=== PATIENT | female | born 1975 | race Caucasian/White ===

== ENCOUNTER 2018-03-24 08:18 | Outpatient (CLI) | payer OTHER ==
--- NOTE | 2018-03-24 10:26 | MMO ---
SCREENING MAMMOGRAPHY: Date: 03-24-18 Comparison: 11-09-15 History: Screening mammogram. FINDINGS: This study is interpreted with the assistance of computer aided detection. Breast parenchyma is heterogeneously dense, limiting mammographic sensitivity. There is no dominant mass or architectural distortion. No concerning microcalcifications. IMPRESSION: BIRADS 1 - negative. Annual screening mammography advised. POS: [facility]
== END 2018-03-24 08:19 | disposition home or self-care (01) ==
LOC: SCSMAMMO 08:18
PROVIDERS: ATTEND Family Medicine
DX: Z12.31 Encounter for screening mammogram for malignant neoplasm of breast (principal)
CPT/HCPCS: 77067

== ENCOUNTER 2018-04-13 08:40 | Outpatient (CLI) | payer OTHER ==
--- NOTE | 2018-04-13 11:55 | ULT ---
LEFT BREAST LIMITED ULTRASOUND: History: Patient presents with a palpable finding in the outer aspect of the left breast. FINDINGS: In the 4 o'clock position in the left breast, 5 cm from the nipple there is a benign cyst measuring 0 .4 x 0.7 x 0.8 cm. In the 4 o'clock position of the left breast 6 cm from the nipple there is a sligh tly larger, 0.6 x 0.9 x 1.0 cm benign cyst. Two benign cysts in the upper outer aspect of the left breast which certainly could account for palpa ble finding. IMPRESSION: BIRADS category 2 - benign findings. Continued annual follow up screening mammograms. Given the patient's very dense breast parenchymal changes, I would suggest consideration for follow u p 3D mammography. POS: OFF
== END 2018-04-13 08:41 | disposition home or self-care (01) ==
LOC: BICMAMMO 08:40
PROVIDERS: ATTEND Family Medicine
DX: N63.20 Unspecified lump in the left breast, unspecified quadrant (principal); N64.89 Other specified disorders of breast
CPT/HCPCS: G0279

== ENCOUNTER 2019-04-15 09:07 | Outpatient (CLI) | payer OTHER ==
--- NOTE | 2019-04-15 10:32 | ULT ---
THYROID ULTRASOUND INDICATION: Abnormal thyroid exam TECHNIQUE: Grayscale and color Doppler images were obtained of the thyroid gland. COMPARISON: None FINDINGS: Right thyroid lobe: The right thyroid lobe measures 5.1 x 1.5 x 1.5 cm. Thyroid isthmus: The thyroid isthmus measures 0.24 cm. Left thyroid lobe: The left thyroid lobe measures 5.0 x 1.3 x 1.2 cm. There is a 1.1 cm cyst within t he mid left thyroid lobe. IMPRESSION: 1. TIRADS 1 lesion of the mid left thyroid lobe. No ultrasound follow-up is recommended. 2. No focal lesion seen within the right thyroid lobe or thyroid isthmus.
--- NOTE | 2019-04-15 13:23 | MMO ---
Bilateral MAMMO Bilat Screen [facility]. CLINICAL HISTORY: Patient is 43 years old and is seen for screening. The patient has no family history of breast cancer. The patient has no personal history of cancer. VIEWS: The views performed were: bilateral craniocaudal with tomosynthesis; bilateral mediolateral oblique with tomosynthesis; and bilateral exaggerated craniocaudal. FILMS COMPARED: The present examination has been compared to prior imaging studies performed at [facility] on 04/13/2018, and at [facility] on 11/09/2015 and 03/24/2018. This study has been interpreted with the assistance of computer-aided detection. MAMMOGRAM FINDINGS: The breasts are extremely dense, which may lower the sensitivity of mammography. There are stable benign appearing calcifications seen in both breasts. There are no suspicious masses, suspicious calcifications, or new areas of architectural distortion. IMPRESSION: THERE IS NO MAMMOGRAPHIC EVIDENCE OF MALIGNANCY. A ROUTINE FOLLOW-UP MAMMOGRAM IN 1 YEAR IS RECOMMENDED. THE RESULTS OF THIS EXAM WERE SENT TO THE PATIENT. ACR BI-RADS Category 2 - Benign finding MAMMOGRAPHY NOTE: 1. A negative mammogram report should not delay a biopsy if a dominant of clinically suspicious mass is present. 2. Approximately 10% to 15% of breast cancers are not detected by mammography. 3. Adenosis and dense breasts may obscure an underlying neoplasm. Reported by: BRANDIN ESCOBAR MD Electonically Signed: [id number]
== END 2019-04-15 09:08 | disposition home or self-care (01) ==
LOC: BICMAMMO 09:07
PROVIDERS: ATTEND Family Medicine
DX: Z12.31 Encounter for screening mammogram for malignant neoplasm of breast (principal); R94.6 Abnormal results of thyroid function studies; E07.9 Disorder of thyroid, unspecified
CPT/HCPCS: 76536; 77063; 77067

== ENCOUNTER 2020-06-26 14:49 | Outpatient (CLI) | payer OTHER | END 2020-06-26 14:50 | disposition home or self-care (01) | LOC: SCSRAD 14:49 | PROVIDERS: ATTEND Family Medicine | DX: R22.32 Localized swelling, mass and lump, left upper limb (principal) ==

== ENCOUNTER 2020-08-29 16:32 | Outpatient (CLI) | payer OTHER ==
[2020-08-29 18:57] LABS: #Monocytes 0.4 10x3/uL (0.0-1.1); #Neutrophils 3.8 10x3/uL (1.5-8.4); %Basophils 0.5 % (0.0-2.0); %Eosinophils 0.3 % (0.0-6.0); %Lymphocytes 29.7 % (18.0-47.0); %Neutrophils 63.2 % (40.0-75.0); Hemoglobin 13.2 g/dL (12.0-15.5); Mean Corpuscular HGB CONC 33.5 g/dL (32.0-36.0); Mean Corpuscular Hemoglobin 30.8 pg (27.0-33.0); Mean Corpuscular Volume 92.1 fl (81.6-98.3); Mean Platelet Volume 10.2 fl (7.4-10.4); Platelet Count 233 10x3/uL (150-450); RBC Distribution Width 11.6 % (11.5-14.5); Red Blood Cell (RBC) Count 4.28 10x6/uL (3.90-5.03)
== END 2020-08-29 16:33 | disposition home or self-care (01) ==
LOC: LABBT 16:32
PROVIDERS: ATTEND Orthopaedic Surgery Hand Surgery
DX: Z01.812 Encounter for preprocedural laboratory examination (principal); R22.32 Localized swelling, mass and lump, left upper limb
CPT/HCPCS: 85025

== ENCOUNTER 2020-09-01 11:14 | Day surgery (SDC) | payer OTHER ==
[2020-08-31 13:41] VITALS: BMI 20.9
[2020-09-01] MEDS ORDERED: Scopolamine 1.5 mg/72 hour Patch ONE (13:08)
[2020-09-01] MEDS ORDERED: Bupivacaine PF 0.5% 30 ML VIAL ONE (14:42)
[2020-09-01] MEDS ORDERED: Bacitracin Zinc Ointment 30 gm TUBE ONE (14:42)
[2020-09-01] MEDS ORDERED: Betamet Acet/Betamet Na Ph 30 MG/5 ML VIAL ONE (14:42)
[2020-09-01] MEDS ORDERED: Propofol 500 MG/50 ML VIAL ONE ×2 (14:54→15:32)
[2020-09-01] MEDS ORDERED: PROPOFOL 200 MG/20 ML VIAL ONE (15:08)
[2020-09-01] MEDS ORDERED: Ondansetron PF 4 MG/2 ML Vial ONE (15:08)
[2020-09-01] MEDS ORDERED: Ketorolac Tromethamine 30 MG/ML VIAL ONE (15:08)
[2020-09-01] MEDS ORDERED: Dexamethasone 20 MG/5 ML VIAL ONE (15:08)
[2020-09-01] MEDS ORDERED: ePHEDrine Sulfate 50 MG/10 ML VIAL ONE (15:08)
[2020-09-01] MEDS ORDERED: Fentanyl 100 MCG/2 ML VIAL ONE (15:33)
== END 2020-09-01 19:35 | disposition home or self-care (01) ==
LOC: SDC 11:14
PROVIDERS: ATTEND Orthopaedic Surgery Hand Surgery
PROC: 01N60ZZ Release Radial Nerve, Open Approach (ICD-10-PCS; principal; 2020-09-01)
PROC: 0LB80ZZ Excision of Left Hand Tendon, Open Approach (ICD-10-PCS; principal; 2020-09-01)
DX: M67.442 Ganglion, left hand (principal); D64.9 Anemia, unspecified; Z79.899 Other long term (current) drug therapy; Z88.5 Allergy status to narcotic agent; Z88.8 Allergy status to other drugs, medicaments and biological substances
CPT/HCPCS: 88304; J0690; J0702; J1100; J1885; J2405; J2704; J3010; S0020

== ENCOUNTER 2021-03-28 08:56 | Outpatient (CLI) | payer BC, OTHER | END 2021-03-28 08:57 | disposition home or self-care (01) | LOC: BICMAMMO 08:56 | PROVIDERS: ATTEND Family Medicine | DX: Z12.31 Encounter for screening mammogram for malignant neoplasm of breast (principal) | CPT/HCPCS: 77063; 77067 ==

== ENCOUNTER 2022-04-22 08:51 | Outpatient (CLI) | payer BC | END 2022-04-22 08:52 | disposition home or self-care (01) | LOC: BICMAMMO 08:51 | PROVIDERS: ATTEND Family Medicine | DX: Z12.31 Encounter for screening mammogram for malignant neoplasm of breast (principal) | CPT/HCPCS: 77063; 77067 ==